=== PATIENT | female | born 1965 | race Caucasian/White ===

== ENCOUNTER 2021-05-23 16:41 | Emergency (ER) | payer OTHER ==
[2021-05-23 17:44] LABS: CORONAVIRUS 2019 SARS-COV-2 NEGATIVE (NEGATIVE); INFLUENZA A NAA NEGATIVE (NEGATIVE)
[2021-05-23 18:33] LABS: BASOPHIL 0.6 % (0-2); EOSINOPHIL 2.1 % (0-5); HCT 41.1 % (37.0-47.0); HGB 13.9 g/dl (12.5-16.0); LYMPHOCYTE 40.6 % (15-48); MCH 32.9 pg (25.0-31.0); MCHC 33.8 g/dL (32.0-36.0); MCV 97.2 fL (78.0-100.0); MONOCYTE 7.6 % (0-12); MPV 8.8 fL (6.0-9.5); NEUTROPHIL 48.9 % (41-80); NRBC 0; PLT 295 K/uL (150-400); RBC 4.23 M/uL (4.20-5.40); WBC 8.8 K/uL (4.0-10.5)
[2021-05-23 18:54] LABS: BILIRUBIN - TOTAL 0.2 mg/dL (0.2-1.0); BUN/CREAT RATIO (CALC) 19.8 RATIO; CREATININE 1.01 mg/dL (0.51-0.95); GLOBULIN (CALCULATION) 3.8 g/dL; POTASSIUM 4.4 mmol/L (3.5-5.1); TOTAL PROTEIN 7.8 g/dL (6.4-8.2)
[2021-05-23 19:04] LABS: BILIRUBIN NEGATIVE (NEGATIVE); BLOOD NEGATIVE Ery/uL (NEGATIVE); CLARITY CLEAR (CLEAR); COLOR YELLOW (YELLOW); GLUCOSE (U) NORMAL (NORMAL); LEUKOCYTES 1+ Leu/uL (NEGATIVE); NITRITE NEGATIVE (NEGATIVE); PROTEIN NEGATIVE (NEGATIVE); UROBILINOGEN 0.2 mg/dL (0.2-1.0)
[2021-05-23 19:12] LABS: BACTERIA TRACE; MUCOUS TRACE
== END 2021-05-23 21:45 | disposition home or self-care (01) ==
LOC: FER 16:41
PROVIDERS: Nurse Practitioner Family
DX: R07.89 Other chest pain (principal); J45.909 Unspecified asthma, uncomplicated; E07.9 Disorder of thyroid, unspecified; Z20.822 Contact with and (suspected) exposure to COVID-19; Z88.8 Allergy status to other drugs, medicaments and biological substances; Z91.040 Latex allergy status; Z79.51 Long term (current) use of inhaled steroids; Z79.890 Hormone replacement therapy
CPT/HCPCS: 36415; 71045; 80053; 81001; 84484; 85025; 93005; U0002